=== PATIENT | female | born 1985 | race Hispanic/Latino ===

== ENCOUNTER → 2019-02-26 | Day surgery (SDC) | payer BC ==
[~2019-02-26] MED LIST: CLINDAMYCIN HC150 MG PO; FENTANYL CITRATE/PF 100MCG/2 ML INJ ONE; LIDOCAINE HCL 2% LOCAL INJ 5 ML SDV VIAL INJ ONE; MIDAZOLAM HCL 2 MG/2 ML VIAL ONE; PROPOFOL IV EMULSION 10 MG/ML 50 ML VIAL ONE
--- OUTSIDE RECORDS SUMMARY | 2019-02-26 06:49 | XMS REPORT ---
Author Author [facility] Address Unknown Phone Unavailable Care Team Providers Care Database Consultant Name Role Phone Unavailable Unavailable Payers Payer Name Policy Type Policy Number Effective Date Expiration Date Problems This patient has no known problems. Allergies, Adverse Reactions, Alerts Allergy Name Allergy Type Status Severity Reaction(s) Onset Date Inactive Date Treating Clinician Comments No Known Allergies DA Active U 2019-02-19 00:00:00 No Known Allergies DA Active U 2016-02-12 00:00:00 Medications This patient has no known medications.
--- OUTSIDE RECORDS SUMMARY | 2019-02-26 06:49 | XMS REPORT | Clinical Summary ---
Author Author [facility] Address Unknown Phone Unavailable Care Team Providers Care Exceptional Student Education Teacher Name Role Phone Coleen Aguilar MD PCP Allergies No Known Allergies Medications End Date Status Medication Sig Dispensed Refills Start Date Active etodolac (LODINE) 400 MG Take 1 tablet 30 tablet 0 tabletIndications: Strain (400 mg 9 of lumbar region, initial total) by encounter mouth 2 (two) times a day as needed (pain). Take w/ food. Active cyclobenzaprine Take 1 tablet 20 tablet 0 (FLEXERIL) 5 mg (5 mg total) 9 tabletIndications: Muscle by mouth 2 spasm (two) times a day as needed for muscle spasms. Active pantoprazole (PROTONIX) Take 1 tablet 15 tablet 0 40 MG EC (40 mg total) 9 tabletIndications: by mouth History of gastritis daily. Active omeprazole 20 mg Take 1 tablet 60 each 0 tablet,delayed release by mouth 2 9 (DR/EC)Indications: (two) times a Helicobacter pylori day. gastritis 12/07/2018 Discontinued ascorbic acid, vitamin C, Take 1,000 mg 0 (vitamin C) 1000 MG by mouth tablet daily. 12/07/2018 Discontinued Saccharomyces boulardii Take 250 mg 0 (FLORASTOR) 250 mg by mouth 2 capsule (two) times a day. 09/30/2018 Discontinued cyclobenzaprine 0 (FLEXERIL) 5 mg tablet 8 09/30/2018 Discontinued diclofenac (CATAFLAM) 50 0 MG tablet 8 09/30/2018 Discontinued cran/vitC/mannose/FOS/bro Take by 0 meln (CYSTEX CRANBERRY mouth. ORAL) 07/02/2018 nitrofurantoin, Take 1 14 capsule 0 macrocrystal-monohydrate, capsule (100 8 (MACROBID) 100 MG mg total) by capsuleIndications: Acute mouth 2 (two) cystitis with hematuria times a day for 7 days. 06/28/2018 phenazopyridine Take 1 tablet 10 tablet 0 (PYRIDIUM) 200 MG (200 mg 8 tabletIndications: Acute total) by cystitis with hematuria mouth 3 (three) times a day as needed for bladder spasms for up to 3 days. 09/30/2018 Discontinued promethazine (PHENERGAN) Take 1 tablet 15 tablet 0 25 MG tabletIndications: (25 mg total) 9 Gastroenteritis, Nausea by mouth every 6 (six) hours as needed for nausea or vomiting. 12/07/2018 Discontinued TURMERIC ORAL Take by 0 mouth. 12/07/2018 Discontinued ranitidine (ZANTAC) 300 Take 1 tablet 30 tablet 0 MG tabletIndications: (300 mg 9 Acute gastritis, presence total) by of bleeding unspecified, mouth daily. unspecified gastritis type 01/11/2019 bismuth subcit Take as 120 capsule 0 I-chcvzxeft-oab (PYLERA) directed 9 140-125-125 mg per capsuleIndications: Helicobacter pylori gastritis Active Problems Problem Noted Date Helicobacter pylori gastritis 08/16/2017 Encounters Care Team Description Date Type Specialty EspinoCristina Villavicencio MA 01/27/2019 Telephone Family Medicine Coleen Aguilar MD Abnormal radiologic findings on diagnostic imaging of left kidney 01/09/2019 Hospital Radiology Encounter Coleen Aguilar MD Helicobacter pylori gastritis (Primary Dx); Abnormal radiologic findings on diagnostic imaging of left kidney; Abdominal pain, chronic, epigastric; BMI 22.0-22.9, adult 01/01/2019 Office Visit Family Medicine Facundo Reyna MD Abdominal discomfort in left upper quadrant 12/30/2018 Hospital Radiology Encounter Facundo Reyna MD Strain of lumbar region, initial encounter (Primary Dx); BMI 23.0-23.9, adult; Muscle spasm; History of gastritis 12/05/2018 Office Visit Internal Medicine Facundo Reyna MD Acute gastritis, presence of bleeding unspecified, unspecified gastritis type (Primary Dx); Abdominal discomfort in left upper quadrant 09/30/2018 Office Visit Internal Medicine Facundo Reyna MD Gastroenteritis (Primary Dx); BMI 23.0-23.9, adult; Nausea; Viral upper respiratory tract infection 09/25/2018 Office Visit Internal Medicine Facundo Reyna MD Acute cystitis with hematuria (Primary Dx); BMI 25.0-25.9,adult; Dysuria; Weight gain 06/25/2018 Office Visit Internal Medicine Coleen Aguilar MD 05/03/2018 Telephone Family Medicine after 02/25/2018 Family History Medical History Relation Name Comments No Known Problems Father No Known Problems Mother Relation Name Status Comments Father Alive Mother Alive Social History Date Tobacco Use Types Packs/Day Years Used Never Smoker Smokeless Tobacco: Never Used Alcohol Use Drinks/Week oz/Week Comments Yes occasional Sex Assigned at Date Recorded Not on file Industry Job Start Date Occupation Not on file Not on file Not on file Travel End Travel History Travel Start No recent travel history available. Last Filed Vital Signs Time Taken Vital Sign Reading 01/01/2019 4:34 PM CDT Blood Pressure 115/74 01/01/2019 4:34 PM CDT Pulse 79 01/01/2019 4:34 PM CDT Temperature 36.8 C (98.3 F) 01/01/2019 4:34 PM CDT Respiratory Rate 20 01/01/2019 4:34 PM CDT Oxygen Saturation 100% - Inhaled Oxygen - Concentration 01/01/2019 4:34 PM CDT Weight 57 kg (125 lb 9.6 oz) 01/01/2019 4:34 PM CDT Height 157.5 cm (5' 2") 01/01/2019 4:34 PM CDT Body Mass Index 22.97 Plan of Treatment Health Maintenance Due Date Last Done Comments INFLUENZA VACCINE 12/06/2019 Postponed from 04/17/2019 (Patient Refused) Procedures Comments Procedure Name Priority Date/Time Associated Diagnosis CT ABDOMEN PELVIS W WO Routine 01/09/2019 Abnormal radiologic CONTRAST 12:45 PM CDT findings on diagnostic imaging of left kidney HELICOBACTER PYLORI Routine 01/01/2019 Helicobacter pylori ANTIGEN, STOOL 5:06 PM CDT gastritis US ABDOMEN COMPLETE Routine 12/30/2018 Abdominal discomfort in 10:22 AM CDT left upper quadrant COMPREHENSIVE METABOLIC Routine 10/01/2018 Acute gastritis, presence PANEL 1:37 PM [employer] of bleeding unspecified, unspecified gastritis type CBC WITH PLATELET AND Routine 10/01/2018 Acute gastritis, presence DIFFERENTIAL 1:37 PM [employer] of bleeding unspecified, unspecified gastritis type TSH REFLEX TO T4F Routine 06/25/2018 BMI 25.0-25.9,adult 4:08 PM CDT Weight gain URINE CULTURE Routine 06/25/2018 Acute cystitis with 4:08 PM CDT hematuria POC URINALYSIS DIPSTICK Routine 06/25/2018 Dysuria 3:19 PM CDT after 02/25/2018 Results * CT Abdomen Pelvis W Wo Contrast (01/09/2019 12:45 PM CDT) Specimen Narrative Performed At EXAMINATION:CT ABDOMEN PELVIS W WO CONTRAST [facility] CLINICAL HISTORY:R93.422 Abnormal radiologic findings on diagnostic imaging of left kidney, Abd painunspecified, left renal varix TECHNIQUE: CT of the abdomen and pelvis was performed without contrast utilizing renal stone protocol. Subsequently, postcontrast CT of the abdomen and pelvis was obtained with multiphase renal mass and CT urogram protocol. Sagittal and coronal computerized reformatted images were also obtained. CT imaging was performed with iterative reconstruction techniques and/or automated exposure control to reduce radiation dose. COMPARISON:Abdominal ultrasound 12/30/2018 FINDINGS: 1.The kidneys are symmetric and normal in size. No calculi are seen on precontrast imaging. Postcontrast imaging demonstrates symmetric normal bilateral renal parenchymal enhancement and symmetric excretion. No renal mass, cyst, aneurysm or vascular malformation is seen. 2.The urinary collecting systems, ureters, and urinary bladder. There is no hydronephrosis. 3.The liver, spleen, pancreas, gallbladder, and adrenals are normal. 4.The stomach, small bowel, colon, and appendix are normal. 5.The uterus and adnexa are within normal limits. 6.There is no lymphadenopathy. 7.No skeletal abnormalities seen. IMPRESSION: Normal CT urogram. [id number] Procedure Note Interface, Radiology Results Incoming - 01/09/2019 1:52 PM CDT EXAMINATION: CT ABDOMEN PELVIS W WO CONTRAST CLINICAL HISTORY: R93.422 Abnormal radiologic findings on diagnostic imaging of left kidney, Abd pain unspecified, left renal varix TECHNIQUE: CT of the abdomen and pelvis was performed without contrast utilizing renal stone protocol. Subsequently, postcontrast CT of the abdomen and pelvis was obtained with multiphase renal mass and CT urogram protocol. Sagittal and coronal computerized reformatted images were also obtained. CT imaging was performed with iterative reconstruction techniques and/or automated exposure control to reduce radiation dose. COMPARISON: Abdominal ultrasound 12/30/2018 FINDINGS: 1. The kidneys are symmetric and normal in size. No calculi are seen on precontrast imaging. Postcontrast imaging demonstrates symmetric normal bilateral renal parenchymal enhancement and symmetric excretion. No renal mass, cyst, aneurysm or vascular malformation is seen. 2. The urinary collecting systems, ureters, and urinary bladder. There is no hydronephrosis. 3. The liver, spleen, pancreas, gallbladder, and adrenals are normal. 4. The stomach, small bowel, colon, and appendix are normal. 5. The uterus and adnexa are within normal limits. 6. There is no lymphadenopathy. 7. No skeletal abnormalities seen. IMPRESSION: Normal CT urogram. [facility]-[id number] Performing Organization Address City/[facility]/Zipcode Phone Number [facility] [address] [place] [address] * Helicobacter pylori antigen, stool (01/01/2019 5:06 PM CDT) H pylori Ag, SEE NOTE [facility] stool Comment: [facility]NOST[facility], STOOL MICRO NUMBER:[id number] TEST STATUS: FINAL SPECIMEN SOURCE: STOOL SPECIMEN QUALITY:ADEQUATE RESULT: Not Detected Antimicrobials, proton pump inhibitors, and bismuth preparations inhibit H. pylori and ingestion up to two weeks prior to testing may cause false negative results. If clinically indicated the test should be repeated on a new specimen obtained two weeks after discontinuing treatment. Specimen Stool Resulting Agency Comment Performing Organization Information: Site ID: [id number] Name: [facility] Address: [address] [place] [phone] Director: Roseline Lebron Performing Organization Address City/[facility]/Zipcode Phone Number [employer] [place] [address] [place] [phone] * US Abdomen Complete (12/30/2018 10:22 AM CDT) Specimen Narrative Performed At EXAM: US ABDOMEN COMPLETE [facility] CLINICAL DATA:R10.12 Left upper quadrant pain, dyspepsia COMPARISON: NONE. FINDINGS: LIVER:The liver demonstrates normal echogenicity without focal mass or intrahepatic biliary ductal dilatation. MPV:Doppler evaluation of the portal vein demonstrates normal hepatopedal flow. The main portal vein diameter is 9.5 mm GALLBLADDER:The gallbladder is without evidence of calculi. The gallbladder wall is not thickened and there is no pericholecystic fluid. CBD: Common bile duct measures 3.1 mm, within normal limits. PANCREAS:The visualized portions of the pancreas are within normal limits. SPLEEN:The spleen is homogeneous and not enlarged measuring 8.8 cm. RIGHT KIDNEY:The right kidney is normal in size and echogenicity. There is no evidence of mass, calculi, or hydronephrosis.The right kidney measures 10.6cm. x 3.7 cm x 4.9 cm Renal cortex 1.6 cm LEFT KIDNEY:The left kidney is normal in size and echogenicity. There is no evidence of mass, calculi, or hydronephrosis. The left kidney measures 10.5 cm x 4.6 cm x 4.2 cm. Renal cortex 1.5 cm. 1.3 cm venous varix suspected. In the parapelvic region. AORTA:The visualized upper abdominal aorta demonstrates no evidence of ectasia or aneurysm. IVC:The visualized portions of the inferior vena cava are unremarkable. ASCITES: No abnormal abdominal fluid collections are visualized. There is no evidence of ascites. PLEURAL EFFUSION:There are no pleural effusions. IMPRESSION: Prominent 1.3 cm venous varix suspected on the left. Multiphase enhanced CT evaluation of the abdomen and pelvis with attention kidneys recommended. Otherwise unremarkable upper abdominal ultrasound [id number] Procedure Note Interface, Radiology Results Incoming - 12/30/2018 11:05 AM CDT EXAM: US ABDOMEN COMPLETE CLINICAL DATA: R10.12 Left upper quadrant pain, dyspepsia COMPARISON: NONE. FINDINGS: LIVER: The liver demonstrates normal echogenicity without focal mass or intrahepatic biliary ductal dilatation. MPV: Doppler evaluation of the portal vein demonstrates normal hepatopedal flow. The main portal vein diameter is 9.5 mm GALLBLADDER: The gallbladder is without evidence of calculi. The gallbladder wall is not thickened and there is no pericholecystic fluid. CBD: Common bile duct measures 3.1 mm, within normal limits. PANCREAS: The visualized portions of the pancreas are within normal limits. SPLEEN: The spleen is homogeneous and not enlarged measuring 8.8 cm. RIGHT KIDNEY: The right kidney is normal in size and echogenicity. There is no evidence of mass, calculi, or hydronephrosis. The right kidney measures 10.6cm. x 3.7 cm x 4.9 cm Renal cortex 1.6 cm LEFT KIDNEY: The left kidney is normal in size and echogenicity. There is no evidence of mass, calculi, or hydronephrosis. The left kidney measures 10.5 cm x 4.6 cm x 4.2 cm. Renal cortex 1.5 cm. 1.3 cm venous varix suspected. In the parapelvic region. AORTA: The visualized upper abdominal aorta demonstrates no evidence of ectasia or aneurysm. IVC: The visualized portions of the inferior vena cava are unremarkable. ASCITES: No abnormal abdominal fluid collections are visualized. There is no evidence of ascites. PLEURAL EFFUSION: There are no pleural effusions. IMPRESSION: Prominent 1.3 cm venous varix suspected on the left. Multiphase enhanced CT evaluation of the abdomen and pelvis with attention kidneys recommended. Otherwise unremarkable upper abdominal ultrasound [id number] Performing Organization Address City/State/Zipcode Phone Number [facility] [address] [place] [address] * CBC with platelet and differential (10/01/2018 1:37 PM [employer]) WBC 8.2 3.8 - 10.8 [facility] Thousand/uL [facility] [place] RBC 4.36 3.80 - 5.10 [facility] Million/uL [facility] [place] HGB 12.9 11.7 - 15.5 g/dL [facility] [place] HCT 38.9 35.0 - 45.0 % [facility] [place] MCV 89.2 80.0 - 100.0 fL [facility] [place] MCH 29.6 27.0 - 33.0 pg [facility] [place] MCHC 33.2 32.0 - 36.0 g/dL [facility] [place] RDW 12.4 11.0 - 15.0 % [facility] [place] Platelet count 376 140 - 400 [facility] Thousand/uL [facility] [place] MPV 9.6 7.5 - 12.5 fL [facility] [place] Neutrophils, 5,478 1,500 - 7,800 [facility] absolute cells/uL [facility] [place] Lymphocytes, 2,083 850 - 3,900 cells/uL [facility] absolute [facility] [place] Monocytes, 558 200 - 950 cells/uL [facility] absolute [facility] [place] Eosinophils, 66 15 - 500 cells/uL [facility] absolute [facility] [place] Basophils, 16 0 - 200 cells/uL [facility] absolute [facility] [place] Neutrophils 66.8 % [facility] [place] Lymphocytes 25.4 % [facility] [place] Monocytes 6.8 % [facility] [place] Eosinophils 0.8 % [facility] [place] Basophils + RC 0.2 % [facility] [place] Specimen Blood Narrative Performed At FASTING:YES [facility] FASTING: YES Resulting Agency Comment Performing Organization Information: Site ID: [id number] Name: [facility] Address: [address] [place] [phone] Director: Roseline Lebron Performing Organization Address City/State/Zipcode Phone Number [facility] [place] [address] [place] [address] * Comprehensive metabolic panel (10/01/2018 1:37 PM [employer]) Glucose 86 65 - 99 mg/dL [facility] Comment: DIAGNOSTICS Fasting [place] reference interval BUN, whole 12 7 - 25 mg/dL [facility] blood [facility] [place] Creatinine 0.82 0.50 - 1.10 mg/dL [facility] [place] EGFR Non-Afr. 94 > OR=60 [facility] Vietnamese mL/min/1.73m2 [facility] [place] EGFR 109 > OR=60 [facility] Vietnamese mL/min/1.73m2 [facility] [place] BUN/creatinine NOT APPLICABLE 6 - 22 (calc) [facility] ratio [facility] [place] Sodium 138 135 - 146 mmol/L [facility] [place] Potassium 4.4 3.5 - 5.3 mmol/L [facility] [place] Chloride 103 98 - 110 mmol/L [facility] [place] CO2 28 20 - 32 mmol/L [facility] [place] Calcium 9.1 8.6 - 10.2 mg/dL [facility] [place] Protein 7.4 6.1 - 8.1 g/dL [facility] [place] Albumin, S 4.4 3.6 - 5.1 g/dL [facility] [place] Globulin, total 3.0 1.9 - 3.7 g/dL [facility] (calc) [facility] [place] Albumin/globuli 1.5 1.0 - 2.5 (calc) [facility] n ratio [facility] [place] Total bilirubin 0.6 0.2 - 1.2 mg/dL [facility] [place] Alkaline 61 33 - 115 U/L [facility] phosphatase [facility] [place] AST 14 10 - 30 U/L [facility] [place] ALT 4 (L) 6 - 29 U/L [facility] [place] Specimen Blood Narrative Performed At FASTING:YES [facility] FASTING: YES Resulting Agency Comment Performing Organization Information: Site ID: [id number] Name: [facility] Address: [address] [place] [phone] Director: Roseline Lebron Performing Organization Address [facility] [place] [address] * TSH reflex to T4 (06/25/2018 4:08 PM CDT) TSH reflex to 0.56 mIU/L [facility] FT4 Comment: DIAGNOSTICS Reference [place] Range > or=20 Years0.40-4.50 Ranges First trimester0.26-2.66 Second trimester 0.55-2.73 Third trimester0.43-2.91 Specimen Blood Narrative Performed At FASTING:NO [facility] FASTING: NO Resulting Agency Comment Performing Organization Information: Site ID: [id number] Name: [facility] Address: [address] [place] [phone] Director: Roseline Lebron Performing Organization Address [facility] [place] [address] * Urine culture (06/25/2018 4:08 PM CDT) Urine culture SEE NOTE (A) [facility] Comment: DIAGNOSTICS CULTURE, URINE, ROUTINE [place] MICRO NUMBER:[id number] TEST STATUS: FINAL SPECIMEN SOURCE: URINE SPECIMEN QUALITY:ADEQUATE RESULT: Greater than 100,000 CFU/mL of Escherichia coli E.coli -------- -------- INT LEE AMOX/CLAVULANATE S <=2 AMPICILLIN S 4 AMP/SULBACTAM S <=2 CEFAZOLIN NR<=4 2 CEFEPIME S <=1 CEFTRIAXONE S <=1 CIPROFLOXACIN S <=0.25 GENTAMICIN S <=1 IMIPENEM S <=0.25 LEVOFLOXACIN S <=0.12 NITROFURANTOIN S <=16 PIP/TAZOBACTAM S <=4 TOBRAMYCIN S <=1 TRIMETHOPRIM/SULFA S <=20 S=SusceptibleI=Intermediat eR=Resistant*=Not Tested NR=Not ReportedNN=See Therapy Comments THERAPY COMMENTS Note 1: For infections other than uncomplicated UTI caused by E. coli, K. pneumoniae or P. mirabilis: Cefazolin is resistant if LEE > or=8 mcg/mL. (Distinguishing susceptible versus intermediate for isolates with LEE < or=4 mcg/mL requires additional testing.) Note 2: For uncomplicated UTI caused by E. coli, K. pneumoniae or P. mirabilis: Cefazolin is susceptible if LEE <32 mcg/mL and predicts susceptible to the oral agents cefaclor, cefdinir, cefpodoxime, cefprozil, cefuroxime, cephalexin and loracarbef. Specimen Urine Narrative Performed At FASTING:NO [facility] FASTING: NO Resulting Agency Comment Performing Organization Information: Site ID: [id number] Name: [facility] Address: [address] [place] [phone] Director: Roseline Lebron Performing Organization Address City/State/Zipcode [place] [address] * POC urinalysis dipstick (06/25/2018 3:19 PM CDT) Color urine, Yellow POC Clarity urine, Clear POC Glucose urine, Negative Negative POC Bilirubin Negative Negative urine, POC Ketones urine, Negative Negative POC Specific 1.010 1.005 - 1.030 gravity urine, POC Blood urine, Large (A) Negative POC pH urine, POC 7.5 5.0, 5.5, 6.0, 6.5, 7.0, 7.5, 8.0, 8.5 Protein urine, Negative Negative POC Urobilinogen <2.0 <2.0 urine, POC Nitrite urine, Negative Negative POC Leukocyte Small (A) Negative esterase urine, POC Specimen Urine after 02/25/2018 Insurance Type Payer Benefit Subscriber ID Effective Phone Address Plan / Dates Group PPO BCBS BCBS xxxxxxxxxxxx [id number] CHOICE resent PPO/[employer] PPO Advance Directives Patient has advance care planning documents on file. For more information, arminda hernandez contact: James James [address] [place] [address]
[2019-02-26 10:15] VITALS: BP 111/77
--- NOTE | 2019-02-26 17:21 | Operative Report ---
DATE OF PROCEDURE: 02/26/2019 SURGEON: Tony Barrett MD PROCEDURE: Esophagogastroduodenoscopy with biopsies. INDICATIONS FOR PROCEDURE: Upper abdominal pain, bloating. MEDICATIONS: The patient was done under MAC, please see anesthesiologist's note. PROCEDURE IN DETAIL: With the patient in left lateral decubitus position, flexible fiberoptic Olympus gastroscope was introduced into the esophagus under direct visualization without any difficulty. There was some patchy erythema noted in distal esophagus. The scope was then advanced with ease into the stomach and mucosa overlying the antrum and the body revealed some patchy erythema and low-grade to moderate edema and biopsies were obtained and sent to stain for H pylori. A minute polyp, hyperplastic appearing, was noted in the upper body and that was removed per the cold biopsy forceps. Pylorus was of normal contour and shape, it was intubated with ease and the scope was advanced all the way to the second portion of the duodenum. Biopsies were obtained from the proximal second portion as well as the duodenal bulb to rule out sprue. The scope was then withdrawn back into the stomach and retroflexed and mucosa overlying the fundus and the cardia appeared to be within normal limits. The scope was then straightened out, it was subsequently withdrawn. The patient tolerated procedure well. IMPRESSION: 1. Distal esophagitis, mild. 2. Gastritis, biopsied, biopsies sent to stain for H pylori. 3. Gastric polyp, upper body, excised with the cold biopsy forceps. 4. Rule out sprue. PLAN: Follow up histology. Initiate Protonix 40 mg one p.o. q.a.m. a.c. If the patient does not improve on the current PPI regimen, we will proceed with a HIDA scan with ejection fraction. Tony Barrett MD [facility]/MODL /[id number] cc: Coleen Aguilar MD
== END | disposition home or self-care (01) ==
LOC: OR 06:41
PROVIDERS: ATTEND Internal Medicine Gastroenterology
DX: K29.70 Gastritis, unspecified, without bleeding (principal); K31.7 Polyp of stomach and duodenum; K20.9 Esophagitis, unspecified; K59.00 Constipation, unspecified
CPT/HCPCS: 43239; 81025; J2001; J2250; J2704